=== PATIENT | male | born 1955 | race African-American/Black ===

== ENCOUNTER 2018-08-23 10:57 | Observation (INO) ==
[2018-08-23] MEDS ORDERED: NITROGLYCERIN SL 0.4 MG TABLET SL PRN (11:29)
[2018-08-23] MEDS ORDERED: METOPROLOL TARTRATE 5 MG/5 ML VIAL IV STA (11:29)
[2018-08-23] MEDS ORDERED: NITROGLYCERIN 2% OINT 1 INCH/GM PACK TOP STA (11:29)
[2018-08-23] MEDS ORDERED: amLODIPine 5 MG TABLET PO STA (11:30)
[2018-08-23] MEDS ORDERED: hydrALAZINE 20 MG/1 ML VIAL IV STA ×2 (11:30→13:21)
[2018-08-23 12:11] LABS: Basophils % 0.3 % (0.0-0.8); Hematocrit 40.3 VOL% (42.0-52.0); Hemoglobin 13.6 GM/DL (14.0-18.0); Immature Granulocytes % 0.3 %; Immature Granulocytes Absolute 0.02 #; Lymphocytes # 1.1 10*3/uL (1.4-4.0); Lymphocytes % 17.5 % (21.2-54.2); Mean Corpuscular HGB Conc 33.7 GM/DL (32-36); Mean Corpuscular Hemoglobin 34 PG (27-34); Mean Platelet Volume 10.6 FL (9.6-12.0); Monocytes # 0.3 10*3/uL (0.11-0.8); Monocytes % 5.4 % (1.7-12.7); Neutrophils # 4.8 10*3/uL (1.4-7.4); Neutrophils % 76.5 % (38.7-73.9); Platelet Count 186 T/CUMM (130-400); Red Blood Count 3.99 MC/CUMM (3.8-5.5); Red Cell Distribution Width 13.4 % (9.3-17.3); White Blood Count 6.3 T/CUMM (4-12)
[2018-08-23 12:31] LABS: Calcium 8.9 MG/DL (8.5-10.1); Osmolality,Calculated 275.4 MOS/KG (273-304); Potassium 4.4 MMOL/L (3.5-5.1)
[2018-08-23] MEDS ORDERED: ACETAMINOPHEN 325 MG TABLET PO PRN (13:42)
[2018-08-23] MEDS ORDERED: MAGNESIUM SULF RIDER 2 GM in PREMIX 1 EACH IV STA (13:47)
[2018-08-23] MEDS ORDERED: HYDROmorphone 2 MG/1 ML VIAL IV PRN (13:48)
[2018-08-23 14:00] LABS: Apearance,Urine CLEAR (Clear); Bilirubin,Urine Negative (Negative); Blood, Urine Negative (Negative); Glucose,Urine (UA) Negative (Negative); Ketones,Urine 5 mg/dL (Negative); Mucus,Urine Occasional /LPF (Occasional); Nitrite,Urine Negative (Negative); Protein,Urine 100 MG/DL; RBC,Urine 1 /HPF (0-4); Squamous Epithelial Cell,Urine Occasional /HPF (0-10); Urine Color Yellow (Yellow); Urine Specific Gravity 1.016 (1.001-1.035); Urine Urobilinogen < 2.0 EU/DL (0.2-1.0); WBC,Urine 5 /HPF (0-6)
[2018-08-23] MEDS: LACTATED RINGERS 1,000 ML IV SCH ×2 (14:24→23:33)
[2018-08-23] MEDS ORDERED: METHOCARBAMOL 750 MG TABLET PO PRN (14:36)
[2018-08-23] MEDS ORDERED: HydrOXYzine PAMOATE 25 MG CAPSULE PO PRN (14:36)
[2018-08-23] MEDS ORDERED: LORazepam 2 MG/1 ML VIAL IV PRN (14:36)
[2018-08-23] MEDS ORDERED: DICYCLOMINE 10 MG CAPSULE PO PRN (14:36)
[2018-08-23 14:37] LABS: % Iron Saturation 32.9 % (18-50); Ferritin 188.4 ng/ml (26-388)
[2018-08-23] MEDS ORDERED: THIAMINE INJ 100 MG, FOLIC ACID INJ 1 MG, MULTIVITAMIN INJ 10 ML in SODIUM CHLORIDE 0.9... IV ONE (15:00)
[2018-08-23] MEDS ORDERED: cloNIDine 0.1 MG TABLET PO SCH (15:00)
[2018-08-23] MEDS: PANTOPRAZOLE 40 MG VIAL IV SCH ×2 (16:50→21:07)
[2018-08-23] MEDS: NICOTINE 21 MG/24 HR PATCH TRANSDERM SCH (16:50)
[2018-08-23] MEDS: SUCRALFATE 1 GM/10 ML UDCUP PO SCH ×2 (16:52→21:03)
[2018-08-23 17:29] LABS: Folate 8.3 NG/ML (5.4-24.0)
[2018-08-23] MEDS: chlordiazePOXIDE 25 MG CAPSULE PO SCH ×2 (17:47→23:32)
[2018-08-23] MEDS: cloNIDine 0.1 MG TABLET PO SCH (21:03)
[2018-08-24 01:08] LABS: Albumin 3.2 G/DL (3.4-5.0); Bilirubin,Total 1.9 MG/DL (0.2-1.0); Calcium 8.3 MG/DL (8.5-10.1); Osmolality,Calculated 272.7 MOS/KG (273-304); Potassium 3.6 MMOL/L (3.5-5.1); Total Protein 6.6 G/DL (6.4-8.3)
[2018-08-24 01:21] LABS: Basophils % 0.5 % (0.0-0.8); Hematocrit 33.8 VOL% (42.0-52.0); Hemoglobin 11.3 GM/DL (14.0-18.0); Immature Granulocytes % 0.3 %; Immature Granulocytes Absolute 0.01 #; Lymphocytes # 1.7 10*3/uL (1.4-4.0); Mean Corpuscular HGB Conc 33.4 GM/DL (32-36); Mean Corpuscular Hemoglobin 34 PG (27-34); Mean Corpuscular Volume 100.9 FL (87-102); Mean Platelet Volume 11.5 FL (9.6-12.0); Monocytes # 0.4 10*3/uL (0.11-0.8); Monocytes % 9.2 % (1.7-12.7); Neutrophils # 1.8 10*3/uL (1.4-7.4); Red Blood Count 3.35 MC/CUMM (3.8-5.5); Red Cell Distribution Width 13.5 % (9.3-17.3); White Blood Count 3.9 T/CUMM (4-12)
[2018-08-24 01:28] LABS: Platelet Count 155 T/CUMM (130-400)
[2018-08-24] MEDS: LACTATED RINGERS 1,000 ML IV SCH ×3 (04:58→10:48)
[2018-08-24] MEDS: chlordiazePOXIDE 25 MG CAPSULE PO SCH ×2 (05:46→12:00)
[2018-08-24] MEDS: cloNIDine 0.1 MG TABLET PO SCH (08:16)
[2018-08-24] MEDS: PANTOPRAZOLE 40 MG VIAL IV SCH (08:18)
[2018-08-24] MEDS: SUCRALFATE 1 GM/10 ML UDCUP PO SCH ×2 (08:18→11:50)
[2018-08-24] MEDS: NICOTINE 21 MG/24 HR PATCH TRANSDERM SCH (08:24)
[2018-08-24] MEDS ORDERED: PANTOPRAZOLE 40 MG TABLET PO SCH ×2 (09:00→21:00)
[2018-08-24] MEDS ORDERED: CYANOCOBALAMIN 1000 MCG/1 ML VIAL IM ONE (10:30)
[2018-08-24] MEDS ORDERED: amLODIPine 5 MG TABLET PO SCH (10:30)
[2018-08-24] MEDS ORDERED: FOLIC ACID 1 MG TABLET PO SCH (21:00)
[2018-08-27 08:41] VITALS: BP 131/98
== END 2018-08-24 17:23 | disposition home or self-care (01) ==
LOC: EDUNIT# → EDBD → N.2E 10:57 → N.ED 10:57 → N.2E 15:48
PROVIDERS: ADMIT Internal Medicine; ATTEND Internal Medicine